=== PATIENT | male | born 1980 | race Hispanic/Latino ===

== ENCOUNTER 2021-09-14 16:40 | Emergency (ER) | payer BC, OTHER ==
[~2021-09-14] VITALS: Ht 170.2 cm; Wt 79.4 kg
[2021-09-14] MEDS ORDERED: KETOROLAC TROME10 MG PEG (17:25)
[2021-09-14] MEDS ORDERED: METHOCARBAMOL750 MG PO (17:25)
[2021-09-14] MEDS ORDERED: DEXAMETHASONE SOD PHOS 10 MG/1 ML VIAL IM ONE (18:00)
== END 2021-09-14 18:54 | disposition home or self-care (01) ==
LOC: ER 17:30
DX: M54.42 Lumbago with sciatica, left side (principal)
CPT/HCPCS: 99283; J1100